=== PATIENT | male | born 1995 | race Caucasian/White ===

== ENCOUNTER 2016-07-05 17:57 | Emergency (ER) | payer BC ==
[2016-07-05 18:02] VITALS: BP 133/79; PULSE 89; RESP 16; TEMP 98.9
--- NOTE | 2016-07-05 18:09 | ED ---
General Adult HPI - General Chief complaint: Head Injury Stated complaint: poss broken nose Time Seen by Provider: 07/05/16 18:03 Source: patient, RN notes reviewed Mode of arrival: ambulatory Limitations: no limitations - History of Present Illness Initial comments: This is a 21-year-old male presents with epistaxis after getting hit in the nose with a baseball pitch approximately 20 minutes ago. Patient states the ball grazed the side of his nose as he was turning his head away from a pitch. Patient states it has been bleeding out of the right side of the nose but this has stopped. Patient is not on any anticoagulants. Patient denies any loss of consciousness, visual changes, headache, nausea/vomiting or dizziness. Patient denies any recent fever, chills, shortness breath, chest pain, abdominal pain, nausea/vomiting/diarrhea, back pain, numbness, tingling, hematuria, or any other complaints. - Related Data Previous Rx's Medication Instructions Recorded Amoxic-Pot Clav 500-125 mg 1 tab PO Q12HR 5 Days 07/05/16 [Augmentin 500-125 mg] Allergies Allergy/AdvReac Type Severity Reaction Status Date / Time No Known Allergies Allergy Verified 07/05/16 18:01 Review of Systems ROS Statement: Those systems with pertinent positive or pertinent negative responses have been documented in the HPI. ROS Other: All systems not noted in ROS Statement are negative. Past Medical History Past Medical History: No Reported History History of Any Multi-Drug Resistant Organisms: None Reported Past Surgical History: No Surgical Hx Reported Past Psychological History: No Psychological Hx Reported Smoking Status: Never smoker Past Alcohol Use History: None Reported Past Drug Use History: None Reported General Exam - General Exam Comments Initial Comments: General: The patient is awake and alert, in no distress, and does not appear acutely ill. Eye: Pupils are equal, round and reactive to light, extra-ocular movements are intact. No nystagmus. There is normal conjunctiva bilaterally. No signs of icterus. Ears: TMs pink and pearly with intact cone of light bilaterally. Normal external ear canals Nose: Mild tenderness to palpation over the bridge of the nose. Mild swelling to the bridge of the nose, no ecchymosis. Blood present in the right nostril but no active bleeding. No septal hematoma. Left nasal turbinates pink and moist. Mouth and throat: There are moist mucous membranes and no oral lesions. Neck: The neck is supple, there is no tenderness or JVD. Cardiovascular: There is a regular rate and rhythm. No murmur, rub or gallop is appreciated. Respiratory: Lungs are clear to auscultation, respirations are non-labored, breath sounds are equal. No wheezes, stridor, rales, or rhonchi. Musculoskeletal: Normal ROM, no tenderness. Strength 5/5. Sensation intact. Radial pulses equal bilaterally 2+. Neurological: A&O x 3. CN II-XII intact, There are no obvious motor or sensory deficits. Coordination appears grossly intact. Speech is normal. Skin: Skin is warm and dry and no rashes or lesions are noted. Psychiatric: Cooperative, appropriate mood & affect, normal judgment. Limitations: no limitations Course Vital Signs 07/05/16 18:01 Temperature 98.9 F Pulse Rate 89 Respiratory 16 Rate Blood Pressure 133/79 O2 Sat by Pulse 98 Oximetry Medical Decision Making - Medical Decision Making This is a 21-year-old male presents concerned for a broken nose. On physical exam Mild tenderness to palpation over the bridge of the nose. Mild swelling to the bridge of the nose, no ecchymosis. Blood present in the right nostril but no active bleeding. No septal hematoma. Left nasal turbinates pink and moist. An x-ray of the nasal bone was done and reviewed showing: Nondisplaced nasal bone fracture. Reported by Dr. Winslow. Discussed the results with patient. Patient will be put on a course of antibiotics. I discussed that patient needs to follow-up with ENT. I discussed return parameters. I discussed ice to the area. I discussed that patient should refrain from sports for the next 2 weeks to allow this to heal. Discussed that patient should follow up with PCP in one to 2 days or return to the [facility] for any worsening symptoms or for any further concerns. Patient was receptive to this plan and patient will be discharged home. Disposition Clinical Impression: Nasal fracture Disposition: HOME SELF-CARE Condition: Good Instructions: Nasal Fracture (ED) Additional Instructions: Please finish entire course of antibiotics. Please use Tylenol or Motrin as needed for pain. Please ice the area. Please refrain from sports for 2 weeks to allow time for healing. Please follow-up with ENT in the next 1-2 days. Please follow-up with family doctor in the next 2 days of symptoms have not improved. Please return to emergency room if the symptoms increase or worsen or for any other concerns. Prescriptions: Amoxic-Pot Clav 500-125 mg [Augmentin 500-125 mg] 1 tab PO Q12HR 5 Days Referrals: Nonstaff,Physician [Primary Care Provider] - 1-2 days Kirt Bejarano DO [Doctor of Osteopathic Medicine] - 1-2 days Conrad Nielsen MD [STAFF PHYSICIAN] - 1-2 days Sully Montaño MD [STAFF PHYSICIAN] - 1-2 days Time of Disposition: 18:36
--- NOTE | 2016-07-05 18:26 | XR ---
EXAMINATION TYPE: XR nasal bone DATE OF EXAM: 07/05/2016 6:15 PM COMPARISON: NONE HISTORY: Baseball hit the face TECHNIQUE: 3 views FINDINGS: On the lateral view there is evidence of a nondisplaced fracture of the anterior nasal bone . Maxillary spine is intact. There is normal aeration of the maxillary sinuses. IMPRESSION: Nondisplaced nasal bone fracture.
== END 2016-07-05 18:41 | disposition home or self-care (01) ==
LOC: EC 17:57
DX: S02.2XXA Fracture of nasal bones, initial encounter for closed fracture (principal); W21.03XA Struck by baseball, initial encounter; Y93.64 Activity, baseball
CPT/HCPCS: 70160; 99283